=== PATIENT | female | born 1960 | race African-American/Black ===

== ENCOUNTER 2019-09-13 10:17 | Emergency (ER) | payer BC ==
[~2019-09-13] VITALS: Ht 180.3 cm; Wt 164.2 kg
[2019-09-13] MEDS ORDERED: HYDROcodone/APAP 7.5/325MG 1 TAB TABLET PO ONE (11:00)
[2019-09-13 11:16] LABS: BASO % 0 % (0-3); EOS # 0.1 x10^3/uL (0.0-0.7); EOS % 1 % (0-3); HEMATOCRIT 34.5 % (36.0-47.0); HEMOGLOBIN 10.6 g/dL (12.0-15.5); LYMPH % 12 % (24-48); MEAN CORPUSCULAR HEMOGLOBIN 27 pg (25-35); MEAN CORPUSCULAR HGB CONC 31 g/dL (31-37); MEAN CORPUSCULAR VOLUME 87 fL (79-100); MONO # 0.5 x10^3/uL (0.0-1.1); MONO % 6 % (0-9); NEUT # 6.5 x10^3uL (1.8-7.7); NEUT % 81 % (31-73); PLATELET COUNT 318 x10^3/uL (140-400); RED BLOOD COUNT 3.98 x10^6/uL (3.50-5.40); RED CELL DISTRIBUTION WIDTH 18.1 % (11.5-14.5)
[2019-09-13 11:22] LABS: C REACTIVE PROTEIN 149.7 mg/L (0-3.3); URIC ACID 8.3 mg/dL (2.6-6.0)
--- NOTE | 2019-09-13 11:38 | PHYS DOC ---
Past History Past Medical History: A-Fib, Diabetes, Hypertension Past Surgical History: No Surgical History Alcohol Use: Occasionally Drug Use: None Adult General Chief Complaint Chief Complaint: HAND PROBLEM HPI HPI Patient is a 58-year-old female who presents with complaint of right hand swelling and pain that started Saturday morning. She states that she woke up this Saturday morning and just noticed swelling to her hand. She states that she has had no injuries and denies any bites. She does indicate that she had a similar episode in the past with her left hand and was diagnosed with gout. She states that this episode is a little bit different because of the location of the swelling and pain. She denies any fever. She denies any chest pain or shortness of breath. Patient rates pain to be an 8 out of 10.[] Review of Systems Review of Systems Constitutional: Denies fever or chills [] Respiratory: Denies cough or shortness of breath [] Cardiovascular: No additional information not addressed in HPI [] Musculoskeletal: Positive right hand swelling and pain [] Integument: Denies rash or skin lesions [] Neurologic: Denies headache, focal weakness or sensory changes [] Current Medications Current Medications Current Medications Medications (Trade) Dose Ordered Sig/Gaetano Start Time Stop Time Status Last Admin Dose Admin Acetaminophen/ Hydrocodone Bitart (Lortab 7.5/325) 1 tab 1X ONCE 09/13/19 11:00 09/13/19 11:01 DC 09/13/19 11:02 1 TAB Allergies Allergies Allergies Coded Allergies Type Severity Reaction Last Updated Verified lisinopril Allergy Unknown 09/13/19 Yes Physical Exam Physical Exam Constitutional: Well developed, well nourished, no acute distress, non-toxic appearance. [] Cardiovascular: Regular rate and rhythm[] Lungs & Thorax: Bilateral breath sounds clear to auscultation [] Skin: Warm, dry, no erythema, no rash. [] Extremities: There is moderate soft tissue swelling to the dorsal aspect of the right hand. There is tenderness to palpation throughout the dorsal aspect of the right hand and wrist. [] Neurologic: Alert and oriented X 3, no focal deficits noted. [] Current Patient Data Vital Signs Vital Signs Date Time Temp Pulse Resp B/P (MAP) Pulse Ox O2 Delivery O2 Flow Rate FiO2 09/13/19 11:02 18 98 Room Air 09/13/19 10:34 98.2 89 Lab Results Laboratory Tests Test 09/13/19 10:52 White Blood Count 8.0 x10^3/uL (4.0-11.0) Red Blood Count 3.98 x10^6/uL (3.50-5.40) Hemoglobin 10.6 g/dL (12.0-15.5) L Hematocrit 34.5 % (36.0-47.0) L Mean Corpuscular Volume 87 fL (79-100) Mean Corpuscular Hemoglobin 27 pg (25-35) Mean Corpuscular Hemoglobin Concent 31 g/dL (31-37) Red Cell Distribution Width 18.1 % (11.5-14.5) H Platelet Count 318 x10^3/uL (140-400) Neutrophils (%) (Auto) 81 % (31-73) H Lymphocytes (%) (Auto) 12 % (24-48) L Monocytes (%) (Auto) 6 % (0-9) Eosinophils (%) (Auto) 1 % (0-3) Basophils (%) (Auto) 0 % (0-3) Neutrophils # (Auto) 6.5 x10^3uL (1.8-7.7) Lymphocytes # (Auto) 1.0 x10^3/uL (1.0-4.8) Monocytes # (Auto) 0.5 x10^3/uL (0.0-1.1) Eosinophils # (Auto) 0.1 x10^3/uL (0.0-0.7) Basophils # (Auto) 0.0 x10^3/uL (0.0-0.2) Uric Acid 8.3 mg/dL (2.6-6.0) H C-Reactive Protein 149.7 mg/L (0-3.3) H EKG EKG [] Radiology/Procedures Radiology/Procedures [] Course & Med Decision Making Course & Med Decision Making Pertinent Labs and Imaging studies reviewed. (See chart for details) [] Dragon Disclaimer Dragon Disclaimer This electronic medical record was generated, in whole or in part, using a voice recognition dictation system. Departure Departure: Impression: Primary Impression: Gout attack Disposition: 01 HOME, SELF-CARE Condition: STABLE Referrals: PCP,UNKNOWN (PCP) Patient Instructions: Gout Scripts Methylprednisolone (MEDROL) 4 Mg Tab.ds.pk 1 PKG PO UD for gout, #1 PKG Prov: DARLEEN VILLALBA Jr. DO 09/13/19 Colchicine (COLCRYS) 0.6 Mg Tablet 1 TAB PO BID for gout pain for 10 Days, #20 TAB 0 Refills Prov: DARLEEN VILLALBA Jr. DO 09/13/19 Indomethacin (INDOMETHACIN) 75 Mg Capsule.er 1 CAP PO BID PRN for PAIN, #20 CAP Prov: DARLEEN VILLALBA Jr. DO 09/13/19 Hydrocodone Bit/Acetaminophen (NORCO 7.5-325 TABLET) 1 Each Tablet 1 TAB PO PRN Q6HRS PRN for PAIN, #12 TAB 0 Refills Prov: DARLEEN VILLALBA Jr. DO 09/13/19 Hydrocodone Bit/Acetaminophen (NORCO 7.5-325 TABLET) 1 Each Tablet 1 TAB PO PRN Q6HRS PRN for PAIN, #12 TAB 0 Refills Prov: DARLEEN VILLALBA Jr. DO 09/13/19 Colchicine (COLCRYS) 0.6 Mg Tablet 1 TAB PO BID for gout pain for 10 Days, #20 TAB 0 Refills Prov: DARLEEN VILLALBA Jr. DO 09/13/19 Indomethacin (INDOMETHACIN) 75 Mg Capsule.er 1 CAP PO BID PRN for PAIN, #20 CAP Prov: DARLEEN VILLALBA Jr. DO 09/13/19 Methylprednisolone (MEDROL) 4 Mg Tab.ds.pk 1 PKG PO UD for inflammation, #1 PKG Prov: DARLEEN VILLALBA Jr. DO 09/13/19 Problem Qualifiers Primary Impression: Gout attack Gout site: hand Gout etiology: unspecified cause Laterality: right Qualified Codes: M10.9 - Gout, unspecified DARLEEN VILLALBA Jr. DO Sep 13, 2019 11:38
[2019-09-13] MEDS ORDERED: COLC0.6T34 PO ×2 (11:42→12:17)
[2019-09-13] MEDS ORDERED: HYDR-3166 PO ×2 (11:42→12:17)
[2019-09-13] MEDS ORDERED: METH4TAB2 PO ×2 (11:42→12:17)
[2019-09-13] MEDS ORDERED: INDO75CA3 PO ×2 (11:42→12:17)
[2019-09-13] MEDS ORDERED: KETOROLAC 30 MG/ML VIAL. IVP ONE (12:00)
[2019-09-13] MEDS ORDERED: DEXAMETHASONE SOD PHOS 10 MG/ML VIAL IV ONE (12:00)
[2019-09-13 12:03] VITALS: BP 135/81
--- NOTE | 2019-09-13 12:03 | RAD ---
EXAM: RIGHT HAND 3 VIEWS. HISTORY: Right hand pain and swelling. COMPARISON: None. FINDINGS: There is soft tissue swelling along the dorsum of the hand and wrist. No fractures are identified. Alignment is maintained. 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 IMPRESSION: 1. Soft tissue swelling. No fracture. Electronically signed by: Andrés Wolf MD (09/13/2019 12:00 PM) [facility]
== END 2019-09-13 12:28 | disposition home or self-care (01) ==
LOC: ER 10:17
DX: M10.9 Gout, unspecified (principal); I48.91 Unspecified atrial fibrillation; E11.9 Type 2 diabetes mellitus without complications; I10 Essential (primary) hypertension; Z88.8 Allergy status to other drugs, medicaments and biological substances
CPT/HCPCS: 36415; 73130; 84550; 85025; 86140; 96374; 96375; 99285; J1100; J1885